=== PATIENT | female | born 1985 ===

== ENCOUNTER 2021-06-09 15:15 | Observation (INO) | payer MEDICAID ==
[2021-06-09] MEDS: TERBUTALINE SULFATE 1 MG/ML 1ML VIAL SC SCH ×2 (16:26→19:01)
[2021-06-09] MEDS ORDERED: FERR-20 PO (16:26)
[2021-06-09] MEDS ORDERED: PREN-96 PO (16:26)
[2021-06-09] MEDS ORDERED: LACTATED RINGER'S 1,000 ML IV ONE (18:00)
[2021-06-09 20:00] LABS: Urine Bacteria NONE SEEN /hpf (None Seen); Urine Blood Negative /uL (Negative); Urine Specific Gravity 1.007 (1.001-1.035); Urine WBC <1 /hpf (0 - 5)
== END 2021-06-09 20:48 | disposition home or self-care (01) ==
LOC: LDRP 15:15
PROVIDERS: ADMIT Obstetrics & Gynecology; ATTEND Obstetrics & Gynecology
DX: O60.02 Preterm labor without delivery, second trimester (principal); O26.892 Other specified pregnancy related conditions, second trimester; R10.30 Lower abdominal pain, unspecified; O62.9 Abnormality of forces of labor, unspecified; Z3A.23 23 weeks gestation of pregnancy
CPT/HCPCS: 59025; 76815; 81001; 81002; 87210; 94760; 96360; 96361; 96372; G0378; G0379; J3105

== ENCOUNTER 2021-06-14 12:31 | Observation (INO) | payer MEDICAID ==
[~2021-06-14] VITALS: Ht 157.5 cm; Wt 74.4 kg
[~2021-06-14 12:31] MED LIST: FERR-20 PO; PREN-96 PO
[2021-06-14] MEDS ORDERED: TERBUTALINE SULFATE 1 MG/ML 1ML VIAL SC SCH (13:30)
[2021-06-14] MEDS ORDERED: NIF10C GT (13:52)
[2021-06-14] MEDS ORDERED: NIF10C PO (13:55)
== END 2021-06-14 14:45 | disposition home or self-care (01) ==
LOC: LDRP 12:31
PROVIDERS: ADMIT Obstetrics & Gynecology; ATTEND Obstetrics & Gynecology
DX: O62.9 Abnormality of forces of labor, unspecified (principal); Z3A.23 23 weeks gestation of pregnancy
CPT/HCPCS: 59025; 81002; 94760; G0378; J3105; 96372

== ENCOUNTER 2021-07-28 10:38 | Observation (INO) | payer MEDICAID ==
[~2021-07-28 10:38] MED LIST changes: +NIF10C PO
== END 2021-07-28 12:37 | disposition home or self-care (01) ==
LOC: LDRP 10:38
PROVIDERS: ADMIT Obstetrics & Gynecology; ATTEND Obstetrics & Gynecology
DX: O60.03 Preterm labor without delivery, third trimester (principal); Z3A.29 29 weeks gestation of pregnancy
CPT/HCPCS: 59025; 81002; 94760; G0378

== ENCOUNTER 2021-07-29 07:19 | Observation (INO) | payer MEDICAID | END 2021-08-04 12:58 | disposition home or self-care (01) | LOC: LDRP 08-04 12:58 | PROVIDERS: ADMIT Obstetrics & Gynecology; ATTEND Obstetrics & Gynecology | DX: O24.419 Gestational diabetes mellitus in pregnancy, unspecified control (principal); O60.03 Preterm labor without delivery, third trimester; Z3A.31 31 weeks gestation of pregnancy | CPT/HCPCS: 59025; 81002; 94760; G0378 ==

== ENCOUNTER 2021-08-10 12:53 | Observation (INO) | payer MEDICAID | END 2021-08-10 15:20 | disposition still patient (30) | LOC: LDRP 12:53 → INTOOBSV 14:10 → OBSVTOIN 14:10 → LDRP 14:37 | PROVIDERS: ADMIT Obstetrics & Gynecology Obstetrics; ATTEND Obstetrics & Gynecology Obstetrics | DX: O62.9 Abnormality of forces of labor, unspecified (principal); O09.213 Supervision of pregnancy with history of pre-term labor, third trimester; O26.893 Other specified pregnancy related conditions, third trimester; R10.9 Unspecified abdominal pain; Z3A.32 32 weeks gestation of pregnancy | CPT/HCPCS: 59025; 81002; 94760; G0378 ==

== ENCOUNTER 2021-08-11 09:00 | Observation (INO) | payer MEDICAID ==
[~2021-08-11] VITALS: Ht 157.5 cm; Wt 77.1 kg
[2021-08-11] MEDS ORDERED: BETAMETHASONE ACET (30mg/5ml) 5ml Vial 6mg/ml IM ONE (09:30)
[2021-08-11 11:12] LABS: Amphetamine Screen, Urine NEGATIVE (NEGATIVE); Barbiturate Scree,Urine NEGATIVE (NEGATIVE); Benzodiazephine Screen, Urine NEGATIVE (NEGATIVE); Cannabinoid Screen, Urine NEGATIVE (NEGATIVE); Cocaine Screen, Urine NEGATIVE (NEGATIVE); Opiate Scree,Urine NEGATIVE (NEGATIVE); Phencyclidine Screen, Urine NEGATIVE (NEGATIVE)
== END 2021-08-11 11:25 | disposition home or self-care (01) ==
LOC: LDRP 09:00
PROVIDERS: ADMIT Obstetrics & Gynecology; ATTEND Obstetrics & Gynecology
DX: O60.03 Preterm labor without delivery, third trimester (principal); Z3A.32 32 weeks gestation of pregnancy; Z79.899 Other long term (current) drug therapy
CPT/HCPCS: 59025; 80307; 81002; 96372; G0378; J0702

== ENCOUNTER 2021-08-12 09:16 | Observation (INO) | payer MEDICAID ==
[~2021-08-12] VITALS: Ht 157.5 cm; Wt 76.7 kg
[2021-08-12] MEDS ORDERED: BETAMETHASONE ACET (30mg/5ml) 5ml Vial 6mg/ml IM ONE (11:15)
== END 2021-08-12 11:59 | disposition home or self-care (01) ==
LOC: LDRP 10:30
PROVIDERS: ADMIT Obstetrics & Gynecology; ATTEND Obstetrics & Gynecology
DX: O60.03 Preterm labor without delivery, third trimester (principal); Z3A.32 32 weeks gestation of pregnancy
CPT/HCPCS: 59025; 81002; 94760; 96372; G0378; J0702

== ENCOUNTER 2021-08-18 09:35 | Observation (INO) | payer MEDICAID | END 2021-08-18 10:16 | disposition home or self-care (01) | LOC: LDRP 09:35 | PROVIDERS: ADMIT Obstetrics & Gynecology; ATTEND Obstetrics & Gynecology | DX: O60.03 Preterm labor without delivery, third trimester (principal); Z3A.33 33 weeks gestation of pregnancy; Z87.51 Personal history of pre-term labor | CPT/HCPCS: 59025; 81002; G0378 ==

== ENCOUNTER 2021-08-25 07:15 | Observation (INO) | payer MEDICAID | END 2021-08-25 09:22 | disposition home or self-care (01) | LOC: LDRP 08:35 | PROVIDERS: ADMIT Obstetrics & Gynecology; ATTEND Obstetrics & Gynecology | DX: O60.03 Preterm labor without delivery, third trimester (principal); Z3A.34 34 weeks gestation of pregnancy | CPT/HCPCS: 59025; 81002; 94760; G0378 ==

== ENCOUNTER 2021-09-01 08:40 | Observation (INO) | payer MEDICAID | END 2021-09-01 09:27 | disposition home or self-care (01) | LOC: LDRP 08:40 | PROVIDERS: ADMIT Obstetrics & Gynecology; ATTEND Obstetrics & Gynecology | DX: O60.03 Preterm labor without delivery, third trimester (principal); Z3A.35 35 weeks gestation of pregnancy | CPT/HCPCS: 59025; 81002; 94760; G0378 ==

== ENCOUNTER 2021-09-08 07:30 | Observation (INO) | payer MEDICAID ==
[~2021-09-08] VITALS: Ht 157.5 cm; Wt 78.9 kg
== END 2021-09-08 09:15 | disposition home or self-care (01) ==
LOC: LDRP 08:30
PROVIDERS: ADMIT Obstetrics & Gynecology; ATTEND Obstetrics & Gynecology
DX: O60.03 Preterm labor without delivery, third trimester (principal); Z3A.36 36 weeks gestation of pregnancy; Z79.899 Other long term (current) drug therapy
CPT/HCPCS: 59025; 81002; 82948; G0378

== ENCOUNTER 2021-09-29 08:57 | Observation (INO) | payer MEDICAID ==
[2021-09-29] MEDS ORDERED: LACTATED RINGER'S 1,000 ML IV ONE (09:30)
[2021-09-29 10:12] LABS: Basophils # (auto) 0.1 10 ^3/uL (0-0.2); Basophils % (auto) 0.7 % (0.0-2.0); Eosinophils # (auto) 0 10 ^3/uL (0-0.8); Mean Corpuscular Volume 99.9 fL (80.0-100.0); Nucleated Red Blood Cells % 0.1 %; Red Cell Distribution Width 13.8 % (11.8-14.3)
[2021-09-29 10:15] LABS: Eosinophils % (auto) 0.4 % (0.0-7.0); Lymphocytes # (auto) 2.1 10 ^3/uL (0.4-5.4); Lymphocytes % (auto) 24.3 % (10.0-50.0); Mean Corpuscular Hemoglobin 36.7 pg (28.0-32.0); Monocytes # (auto) 0.3 10 ^3/uL (0-1.3); Monocytes % (auto) 3.8 % (0.0-12.0); Neutrophils % (auto) 70.8 % (37.0-80.0)
[2021-09-29 10:19] LABS: Mean Corpuscular Hgb Conc. 35.5 g/dL (32.0-36.0)
[2021-09-29 10:20] LABS: White Blood Cell 8.3 10^3/uL (4.4-10.8)
[2021-09-29 10:36] LABS: Albumin 2.7 g/dL (3.4-5.0); BUN/Creatinine Ratio 18.3; Potassium 3.7 mmol/L (3.5-5.1)
[2021-09-29 10:38] LABS: Bilirubin, Total 0.5 mg/dL (0.2-1.0); Total Protein 6.3 g/dL (6.4-8.2)
[2021-09-29 12:05] LABS: Amphetamine Screen, Urine NEGATIVE (NEGATIVE); Barbiturate Scree,Urine NEGATIVE (NEGATIVE); Benzodiazephine Screen, Urine NEGATIVE (NEGATIVE); Cannabinoid Screen, Urine NEGATIVE (NEGATIVE); Cocaine Screen, Urine NEGATIVE (NEGATIVE); Opiate Scree,Urine NEGATIVE (NEGATIVE); Phencyclidine Screen, Urine NEGATIVE (NEGATIVE)
== END 2021-09-29 13:22 | disposition home or self-care (01) ==
LOC: LDRP 08:57
PROVIDERS: ADMIT Obstetrics & Gynecology; ATTEND Obstetrics & Gynecology
DX: O99.891 Other specified diseases and conditions complicating pregnancy (principal); R00.1 Bradycardia, unspecified; O99.283 Endocrine, nutritional and metabolic diseases complicating pregnancy, third trimester; E16.2 Hypoglycemia, unspecified; O99.013 Anemia complicating pregnancy, third trimester; D64.9 Anemia, unspecified; O26.893 Other specified pregnancy related conditions, third trimester; R04.0 Epistaxis; Z3A.39 39 weeks gestation of pregnancy; Z90.49 Acquired absence of other specified parts of digestive tract; Z98.84 Bariatric surgery status
CPT/HCPCS: 36415; 59025; 76818; 80053; 80307; 81002; 83036; 83735; 84443; 85025; 93306; 94760; 96360; G0378

== ENCOUNTER 2021-10-01 07:34 | Observation (INO) | payer MEDICAID ==
[~2021-10-01 07:34] MED LIST changes: -NIF10C PO
== END 2021-10-01 15:54 | disposition home or self-care (01) ==
LOC: LDRP 13:00
PROVIDERS: ADMIT Obstetrics & Gynecology; ATTEND Obstetrics & Gynecology
DX: O62.9 Abnormality of forces of labor, unspecified (principal); O26.893 Other specified pregnancy related conditions, third trimester; R00.0 Tachycardia, unspecified; N89.8 Other specified noninflammatory disorders of vagina; Z3A.39 39 weeks gestation of pregnancy
CPT/HCPCS: 59025; 76818; 81002; 94760; G0378